=== PATIENT | male | born 1980 | race Caucasian/White ===

== ENCOUNTER → 2018-10-25 20:21 | Outpatient (CLI) | payer SELFPAY ==
--- NOTE | 2018-10-25 | XR_ITS ---
PROCEDURE: XR KNEE LT 3V CLINICAL INDICATION: LACERATION TO LEFT KNEE WITH A CHAINSAW Posttraumatic pain, laceration COMPARISON: No exams were available for comparison FINDINGS: No fracture or dislocation. No lytic or blastic change. There is normal mineralization. The joint spaces are well-preserved. No significant degenerative/arthritic changes. No erosive changes evident. Other findings:There is minimal irregularity of the skin surface in the infrapatellar region at the level of the proximal tibia. No evidence of patella magalys. No evidence of complete patellar tendon laceration. No radiopaque foreign body IMPRESSION: Laceration in the infrapatellar region otherwise negative Dictated by: Thien Soto MD 10/26/2018 06:07 Electronically signed by Thien Soto MD in [place] 10/26/2018 06:07
--- NOTE | 2018-10-25 20:45 | XR_ITS ---
PROCEDURE: XR KNEE RT 2V CLINICAL INDICATION: COMPARISON COMPARISON: No exams were available for comparison FINDINGS: No fracture or dislocation. No lytic or blastic change. There is normal mineralization. The joint spaces are well-preserved. No significant degenerative/arthritic changes. No erosive changes evident. Other findings:None. IMPRESSION: No acute findings. Dictated by: Thien Soto MD 10/26/2018 06:02 Electronically signed by Thien Soto MD in [place] 10/26/2018 06:02
== END ==
PROVIDERS: PCP General Practice; Visit Provider General Practice
DX: S81.012A Laceration without foreign body, left knee, initial encounter (principal)
CPT/HCPCS: 73560; 73562